=== PATIENT | male | born 1960 | race Hispanic/Latino ===

== ENCOUNTER 2017-09-14 14:35 | Outpatient (CLI) | payer OTHER ==
--- NOTE | 2017-09-14 17:10 | MRI ---
MRI OF LUMBAR SPINE WITHOUT CONTRAST 09/14/17 Multiplanar and multisequential imaging lumbar spine obtained. HISTORY: Low back pain. Sciatic pain with radiation to the left hip and lower extremity. FINDINGS: The lumbar vertebra maintain height and alignment. There is abnormal loss of T1 signal throughout the visualized vertebrae. This is a nonspecific finding but indicates conversion of yellow marrow. Clini dayana correlation is necessary. At L1-2, minimal disc bulge without significant central canal or foraminal stenosis. At L2-3, there is an annular fissure with diffuse disc bulge flattening the thecal sac. Facet hypertr ophy. Mild to moderate central canal stenosis. At L3-4, mild disc bulge. Mild facet arthrosis. Mild central canal stenosis. At L4-5, diffuse disc bulge with facet hypertrophy results in moderate central canal stenosis. There is abnormal signal seen projecting into the left foramina at L4-5. On sagittal T2 images, this appears to exhibit increased signal. Although this could potentially rep resent a synovial cyst. It does compress the exiting left L4 nerve root. At L5-S1, mild broad based bulge abuts the anterior thecal sac. No significant central canal stenosis . There is right foraminal encroachment due to diffuse disc bulge and facet hypertrophy. This appears to contact the exiting right L5 nerve root. IMPRESSION: 1. Moderate central canal stenosis at L4-5 as described. There is abnormal signal projecting int o the foramina on the left at this level suggesting a synovial cyst. This results in foraminal stenos is and contact with the exiting left L4 nerve root. 2. Disc bulges at L2-3, L3-4, L4-5, and L5-S1 noted as described above. 3. Abnormal low T1 signal throughout the visualized vertebra and sacrum. This suggests conversio n of fatty marrow. Infiltrative processes are considerations. Recommend clinical correlation. 4. There is increased STIR signal seen involving the lamina and superior facet on the left at L5 suggesting edema. This could potentially represent stress reaction or fracture. POS: [facility]
== END 2017-09-14 14:36 | disposition home or self-care (01) ==
LOC: SCSMRI 14:35
PROVIDERS: ATTEND Internal Medicine
DX: M54.30 Sciatica, unspecified side (principal); M51.27 Other intervertebral disc displacement, lumbosacral region; M48.061 Spinal stenosis, lumbar region without neurogenic claudication; M99.53 Intervertebral disc stenosis of neural canal of lumbar region
CPT/HCPCS: 72148

== ENCOUNTER 2018-08-06 08:38 | Outpatient (CLI) | payer OTHER ==
[2018-08-06 09:47] LABS: Hemoglobin 13.7 g/dL (14.0-18.0); Mean Corpuscular HGB CONC 33.4 g/dL (32.0-36.0); Mean Platelet Volume 8.5 fL (7.4-10.4); Platelet Count 182 thou/uL (130-400); Red Blood Cell (RBC) Count 4.43 mill/uL (4.70-6.10); White Blood Cell (WBC) Count 5.5 thou/uL (4.8-10.8)
[2018-08-06 10:05] LABS: Anion Gap 10 mmol/L (10-20); BUN (Urea Nitrogen) 12 mg/dL (8.4-25.7); Calc. Creatinine Clearance 0 mL/min (70-130); Calcium 9.2 mg/dL (7.8-10.44); Carbon Dioxide 25 mmol/L (22-29); Chloride 108 mmol/L (98-107); Estimated GFR-MDRD Greater than 90; Glucose 99 mg/dL (70-105); Potassium 3.9 mmol/L (3.5-5.1); Sodium 139 mmol/L (136-145)
--- NOTE | 2018-08-06 16:52 | EKG ---
Test Reason : Blood Pressure : / mmHG Vent. Rate : 049 BPM Atrial Rate : 049 BPM P-R Int : 142 ms QRS Dur : 090 ms QT Int : 486 ms P-R-T Axes : 047 079 063 degrees QTc Int : 439 ms Marked sinus bradycardia Abnormal ECG When compared with ECG of 18-MAY-2017 15:37, No significant change was found Confirmed by DR. Alin MAJOR ([id number]) on 08/06/2018 4:52:01 PM Referred By: CORINNA Confirmed By:DR. Alin MAJOR
== END 2018-08-06 08:39 | disposition home or self-care (01) ==
LOC: LABBT 08:38
PROVIDERS: ATTEND Neurological Surgery
DX: Z01.818 Encounter for other preprocedural examination (principal); M54.16 Radiculopathy, lumbar region
CPT/HCPCS: 80048; 85027; 93005; 93010

== ENCOUNTER 2018-08-09 05:52 | Day surgery (SDC) | payer OTHER ==
[2018-08-06 08:55] VITALS: BMI 30.5
[2018-08-09] MEDS ORDERED: CEFAZOLIN 2 GM/50 ML BAG ONE (06:00)
[2018-08-09] MEDS ORDERED: Fentanyl 100 MCG/2 ML VIAL ONE ×2 (07:22→08:49)
--- NOTE | 2018-08-09 08:49 | OP ---
DATE OF PROCEDURE: 08/09/2018 SURGEON: Rito Lutz M.D. ADVISORY INTERNSH[employer]: Ania Corbett PA-C. PROCEDURE: Left L4-L5 far lateral microdiskectomy. PROCEDURE IN DETAIL: The patient was brought into the operating room and intubated. He was rolled i n prone position on gel-filled chest rolls. Incision was made exposing L4 and L5 on the left and our level was confirmed by x-ray. We performed a left L4-L5 laminectomy, facetectomy and foraminotomy, identified the left L4 nerve root and removed disc herniation beneath this. Complete decompression o f left L4 was achieved. The wound was extensively irrigated, immaculate hemostasis was secured and t he wound was closed in anatomic layers.
[2018-08-09] MEDS ORDERED: HYDROcodone/Acetaminophen 5/325 mg Tablet ONE (10:02)
== END 2018-08-09 11:45 | disposition home or self-care (01) ==
LOC: SDC 05:52
PROVIDERS: ATTEND Neurological Surgery
PROC: 01NB0ZZ Release Lumbar Nerve, Open Approach (ICD-10-PCS; principal; 2018-08-09)
PROC: 0SB20ZZ Excision of Lumbar Vertebral Disc, Open Approach (ICD-10-PCS; principal; 2018-08-09)
DX: M51.16 Intervertebral disc disorders with radiculopathy, lumbar region (principal); I10 Essential (primary) hypertension; Z79.899 Other long term (current) drug therapy
CPT/HCPCS: 76001; 96374; J3010; J3370

== ENCOUNTER 2019-11-29 08:25 | Outpatient (CLI) | payer OTHER ==
--- NOTE | 2019-11-29 09:56 | RAD ---
3 views of the lumbar spine: 11/29/2019 COMPARISON: None HISTORY: Left leg numbness, right-sided pain FINDINGS: Neutral, flexion, and extension lateral radiographs of the lumbar spine provided. On the basis of 5 lumbar type vertebral bodies, there is multilevel lumbar spine disc space narrowing , most prominent at L2-3 and L5-S1. Multilevel bilateral lower lumbar spine facet hypertrophy. Anterior osteophyte formation noted at L1-2, L2-3, and L5-S1. On the neutral lateral exam there is re trolisthesis measuring 4 mm at L2-3 and 3 mm at L3-4. On the flexion imaging there is anterolisthesis at L4-5 measuring 5 mm. Extension imaging demonstrate s a retrolisthesis at L2-3 measuring 6 mm and at L3-4 measuring 4 mm. No acute fracture or dislocation. IMPRESSION: Degenerative changes as detailed above. Multilevel anterolisthesis and retrolisthesis as detailed above.
--- NOTE | 2019-11-29 11:23 | MRI ---
MRI LUMBAR SPINE WITHOUT CONTRAST: INDICATION: Radiculopathy of lumbar spine. Lumbar disk disease. Comparison is made to MRI of lumbar spine 09/14/2017. FINDINGS: Lumbar vertebrae maintain height and alignment. Degenerative disk signal changes are seen. There is mild loss of disk space at L1-2, L2-3, and L5-S1, similar in appearance to the prior study. There is diffuse loss of T1 signal throughout the visualized vertebral bodies of the lumbar spine. T his noted on the prior exam and is stable in appearance. This indicates fatty marrow conversion and could represent anemia or chronic disease process. At L1-2, mild disk bulge is stable from prior exam. Mild facet hypertrophy. Mild central canal sten osis. Foramen are patent. At L2-3, small annular fissure with a broad-based disk bulge. Mild to moderate facet hypertrophy and posterior epidural fat compress the thecal sac resulting in moderate central canal stenosis similar in appearance to the prior exam. At L3-4, mild disk bulge flattens the thecal sac. Moderate facet hypertrophy and posterior epidural fat. Mild to moderate central canal stenosis appears stable. At L4-5, diffuse disk bulge again noted centrally. There is asymmetric signal on the left encroachin g into the left foramina. There is facet and ligamentous hypertrophy. Moderate central canal stenos is. Left foraminal stenosis due to the asymmetric disk bulge. There is a suggestion of focal signal projecting into the foramen on the sagittal imaging which was described on prior exam as possibly re presenting a synovial cyst. There is probable displacement of the exiting left L4 nerve root. At L5-S, mild disk bulge centrally. Facet hypertrophy. No significant central canal stenosis. Ther e is asymmetric disk-osteophyte projecting laterally to the right which appears to contact and may di splace the lateral right L5 nerve root. IMPRESSION: 1. Multilevel degenerative disk changes. Central canal stenosis is most pronounced at L4-5 and ther e is left foraminal stenosis at this level as described above. These findings are similar to the doris or exam. 2. Loss of T1 signal throughout the lumbar vertebrae again noted. This is a nonspecific finding and is stable from prior exam. POS: [facility]
== END 2019-11-29 08:26 | disposition home or self-care (01) ==
LOC: SCSMRI 08:25
PROVIDERS: ATTEND Nurse Practitioner Family
DX: M51.16 Intervertebral disc disorders with radiculopathy, lumbar region (principal); M47.26 Other spondylosis with radiculopathy, lumbar region; M48.061 Spinal stenosis, lumbar region without neurogenic claudication; M43.16 Spondylolisthesis, lumbar region
CPT/HCPCS: 72100; 72148

== ENCOUNTER 2020-09-04 11:01 | Outpatient (CLI) | payer OTHER ==
--- NOTE | 2020-09-04 11:32 | RAD ---
EXAM: Lumbar spine 4 views: HISTORY: Lumbar radiculopathy COMPARISON: 11/29/2019 FINDINGS: No evidence for acute fracture or dislocation or significant acute osseous process. Alignment:Mild stable retrolisthesis at L2-L3 and L3-L4 and mild anterolisthesis of L4 and L5 without abnormal translation between flexion and extension. Discs: Multilevel discussed proptosis. No evidence for a focal bone lesion. IMPRESSION: Overall stable appearing retrolisthesis at L2-L3 and L3-L4 and anterolisthesis of L4 and L5 without a bnormal translation between flexion and extension. Stable from prior study.
== END 2020-09-04 11:02 | disposition home or self-care (01) ==
LOC: SCSRAD 11:01
PROVIDERS: ATTEND Neurological Surgery
DX: M54.16 Radiculopathy, lumbar region (principal); M43.16 Spondylolisthesis, lumbar region
CPT/HCPCS: 72100